=== PATIENT | male | born 1945 | race Caucasian/White ===

== ENCOUNTER → 2017-04-10 | Outpatient (CLI) | payer OTHER ==
--- NOTE | ~2017-04-10 | 2DMMODE ---
[facility] [place] [place] [address] 2 D/M-MODE ECHOCARDIOGRAM Name: GEOVANY DELONG Room #: REG [facility]#: [id number] Admission: 04/10/17 Attend Phys: Gordon Reynolds MD Discharge: Date of : 45 Date of Service: 04/10/17 0935 Report #: [id number] THIS REPORT FOR: //name// APPROVED REPORT Study performed: 04/10/2017 08:51:43 EXAM: Comprehensive 2D, Doppler, and color-flow Echocardiogram Patient Location: Out-Patient Status: routine BSA: 2.15 HR: 57 bpm BP: 152/88 mmHg Rhythm: NSR Other Information Study Quality: Good Indications Atrial Fibrillation Hx: HTN, HLP 2D Dimensions RVDd: 37.61 mm LVEF(%): 58.10 (>50%) IVSd: 10.76 (7-11mm) LVOT Diam: 20.87 (18-24mm) LVDd: 45.02 mm PWd: 10.40 (7-11mm) Ascending Ao: 32.92 (22-36mm) LVDs: 31.29 (25-40mm) Aortic Root: 31.83 mm Irving's LVEF: 58.10 % Volumes Left Atrial Volume (Systole) Single Plane 4CH: 62.70 mL Single Plane 2CH: 60.21 mL LA ESV Index: 31.00 mL/m2 Aortic Valve AoV Peak Clive.: 1.19 m/s AO Peak Gr.: 5.65 mmHg LVOT Max P.37 mmHg LVOT Max V: 0.92 m/s CUONG Vmax: 2.64 cm2 Mitral Valve E/A Ratio: 2.3 [facility] [place] [employer] [place] [address] 2 D/M-MODE ECHOCARDIOGRAM Name: GEOVANY DELONG Room #: REG [facility]#: [id number] Admission: 04/10/17 Attend Phys: Gordon Reynolds MD Discharge: Date of : 45 Date of Service: 04/10/17 0935 Report #: [id number] MV Decel. Time: 210.51 ms MV E Max Clive.: 0.86 m/s MV A Clive.: 0.38 m/s MV PHT: 61.05 ms IVRT: 55.36 ms Pulmonary Valve PV Peak Clive.: 0.76 m/s PV Peak Gr.: 2.30 mmHg Pulmonary Vein P Vein S: 0.46 m/s P Vein A: 0.29 m/s P Vein D: 0.75 m/s P Vein A Dur.: 96.9 msec P Vein S/D Ratio: 0.61 Tricuspid Valve TR Peak Clive.: 2.09 m/s RAP Estimate: 5.00 mmHg TR Peak Gr.: 17.41 mmHg PA Pressure: 22.00 mmHg Left Ventricle The left ventricle is normal size. There is normal LV segmental wall motion. There is normal left ventricular wall thickness. Left ventricular systolic function is normal. LVEF is 55-60%. Right Ventricle The right ventricle is normal size. The right ventricular systolic function is normal. Atria The left atrium size is normal. The right atrium size is normal. Aortic Valve Aortic valve leaflets are mildly thickened. No aortic regurgitation is present. There is no aortic valvular stenosis. Mitral Valve Mitral valve leaflets are mildly thickened. Trace mitral regurgitation. No evidence of mitral valve stenosis. Tricuspid Valve The tricuspid valve is normal in structure. There is mild tricuspid regurgitation. The right atrial pressure is estimated at 5 mmHg. Estimated PAP is 22mmHg. Pulmonic Valve [address] [address] 2 D/M-MODE ECHOCARDIOGRAM Name: SINDIGEOVANY Room #: REG [facility].#: [id number] Admission: 04/10/17 Attend Phys: Gordon Reynolds MD Discharge: Date of : 45 Date of Service: 04/10/17 0935 Report #: [id number] The pulmonary valve is normal in structure. Trace pulmonic regurgitation. Great Vessels The aortic root is normal in size. The ascending aorta is normal in size. IVC is normal in size and collapses >50% with inspiration. Pericardium There is no pericardial effusion. <Conclusion> The left ventricle is normal size. Left ventricular systolic function is normal. The right ventricle is normal size. The left atrium size is normal. Aortic valve leaflets are mildly thickened. Trace mitral regurgitation. There is mild tricuspid regurgitation. The right atrial pressure is estimated at 5 mmHg. Estimated PAP is 22mmHg. <ELECTRONICALLY SIGNED> By: Gordon Reynolds MD 04/10/1735 4 4 Gordon Reynolds MD /INF
== END ==
LOC: CV 08:31
DX: I48.91 Unspecified atrial fibrillation (principal); I07.1 Rheumatic tricuspid insufficiency; I10 Essential (primary) hypertension

== ENCOUNTER → 2017-04-12 | Outpatient (CLI) | payer OTHER | LOC: NUC 07:38 | DX: I48.91 Unspecified atrial fibrillation (principal) ==

== ENCOUNTER → 2019-01-20 | Outpatient (CLI) | payer OTHER | LOC: CAT 12:02 | DX: Z13.6 Encounter for screening for cardiovascular disorders (principal); E78.00 Pure hypercholesterolemia, unspecified; Z82.49 Family history of ischemic heart disease and other diseases of the circulatory system ==

== ENCOUNTER → 2019-01-20 | Outpatient (CLI) | payer OTHER ==
--- NOTE | 2019-01-20 11:40 | 2DMMODE ---
[facility] [place] [address] 2 D/M-MODE ECHOCARDIOGRAM Name: GEOVANY DELONG Room #: REG [facility]#: [id number] ������������� Admission: 01/20/19 ������������� Attend Phys: Gordon Reynolds MD Discharge: ��� ������������� ��� Date of : 45 Date of Service: 01/20/19 1140 �� Report #: [id number] �������� ��������������������������������������������[id number] THIS REPORT FOR: //name// APPROVED REPORT Study performed: 01/20/2019 11:05:01 EXAM: Comprehensive 2D, Doppler, and color-flow Echocardiogram Patient Location: Out-Patient Status: routine BSA: 2.15 HR: 59 bpm BP: 138/78 mmHg Rhythm: NSR Other Information Study Quality: Good Indications History of Afib. 2D Dimensions RVDd: 35.06 mm IVSd: 10.02 (7-11mm) LVOT Diam: 21.42 (18-24mm) LVDd: 49.89 mm PWd: 10.25 (7-11mm) Ascending Ao: 35.51 (22-36mm) LVDs: 33.00 (25-40mm) Aortic Root: 33.36 mm Volumes Left Atrial Volume (Systole) Single Plane 4CH: 59.04 mL Single Plane 2CH: 62.28 mL LA ESV Index: 30.00 mL/m2 Aortic Valve AoV Peak Clive.: 1.33 m/s AO Peak Gr.: 7.04 mmHg LVOT Max P.84 mmHg LVOT Max V: 0.84 m/s CUONG Vmax: 2.29 cm2 Mitral Valve E/A Ratio: 0.9 MV Decel. Time: 309.16 ms MV E Max Clive.: 0.56 m/s [facility] [address] [address] 2 D/M-MODE ECHOCARDIOGRAM Name: GEOVANY DELONG Room #: REG [facility]#: [id number] ������������� Admission: 01/20/19 ������������� Attend Phys: Gordon Reynolds MD Discharge: ��� ������������� ��� Date of : 45 Date of Service: 01/20/19 1140 �� Report #: [id number] �������� ��������������������������������������������[id number] MV A Clive.: 0.64 m/s MV PHT: 89.66 ms IVRT: 101.50 ms Pulmonary Valve PV Peak Clive.: 1.03 m/s PV Peak Gr.: 4.20 mmHg Pulmonary Vein P Vein S: 0.52 m/s P Vein D: 0.60 m/s P Vein S/D Ratio: 0.87 Tricuspid Valve TR Peak Clive.: 2.01 m/s RAP Estimate: 5.00 mmHg TR Peak Gr.: 16.24 mmHg PA Pressure: 21.00 mmHg Left Ventricle The left ventricle is normal size. There is normal LV segmental wall motion. There is normal left ventricular wall thickness. The left ventricular systolic function is normal. LVEF is 55-60%. Mild diastolic dysfunction is present (impaired relaxation pattern). Right Ventricle The right ventricle is normal size. The right ventricular systolic function is normal. Atria The left atrium size is normal. The right atrium size is normal. Aortic Valve The aortic valve is normal in structure. No aortic regurgitation is present. There is no aortic valvular stenosis. Mitral Valve The mitral valve is normal in structure. Mild mitral regurgitation. Tricuspid Valve The tricuspid valve is normal in structure. Trace tricuspid regurgitation. Estimated PAP is 20-25mmHg. Pulmonic Valve The pulmonary valve is normal in structure. Trace pulmonic [facility] [address] [place] [address] 2 D/M-MODE ECHOCARDIOGRAM Name: DELONGGEOVANY Room #: REG [facility]#: [id number] ������������� Admission: 01/20/19 ������������� Attend Phys: Gordon Reynolds MD Discharge: ��� ������������� ��� Date of : 45 Date of Service: 01/20/19 1140 �� Report #: [id number] �������� ��������������������������������������������[id number] regurgitation. Great Vessels The aortic root is normal in size. Ascending aorta is not well visualized. IVC is normal in size and collapses >50% with inspiration. Pericardium There is no pericardial effusion. <Conclusion> The left ventricle is normal size. There is normal left ventricular wall thickness. The left ventricular systolic function is normal. Mild diastolic dysfunction is present (impaired relaxation pattern). The right ventricle is normal size. The left atrium size is normal. The aortic valve is normal in structure. Mild mitral regurgitation. Trace tricuspid regurgitation. Estimated PAP is 20-25mmHg. ��������������������������������������������� <ELECTRONICALLY SIGNED> ���������������������������������������� By: Gordon Reynolds MD ��������������������������������������������� 01/20/19 1140 1140 1140 Gordon Reynolds MD /INF
== END ==
LOC: CV 10:47
DX: I34.0 Nonrheumatic mitral (valve) insufficiency (principal); I48.91 Unspecified atrial fibrillation; I10 Essential (primary) hypertension

== ENCOUNTER → 2020-01-23 | Outpatient (CLI) | payer OTHER | LOC: SJCVCIMAG 09:21 | PROVIDERS: ATTEND Internal Medicine Cardiovascular Disease | DX: I25.10 Atherosclerotic heart disease of native coronary artery without angina pectoris (principal); I10 Essential (primary) hypertension; E78.5 Hyperlipidemia, unspecified; I48.0 Paroxysmal atrial fibrillation; E78.00 Pure hypercholesterolemia, unspecified; M10.9 Gout, unspecified; Z79.82 Long term (current) use of aspirin; Z79.899 Other long term (current) drug therapy ==

== ENCOUNTER → 2020-08-04 | Outpatient (CLI) | payer OTHER | LOC: SJCVC 13:44 | PROVIDERS: ATTEND Internal Medicine Cardiovascular Disease | DX: R94.31 Abnormal electrocardiogram [ECG] [EKG] (principal); R00.1 Bradycardia, unspecified; I48.0 Paroxysmal atrial fibrillation; I10 Essential (primary) hypertension; E78.00 Pure hypercholesterolemia, unspecified; R60.9 Edema, unspecified; I25.10 Atherosclerotic heart disease of native coronary artery without angina pectoris; R93.1 Abnormal findings on diagnostic imaging of heart and coronary circulation; Z79.82 Long term (current) use of aspirin; Z79.899 Other long term (current) drug therapy ==

== ENCOUNTER → 2021-02-02 | Outpatient (CLI) | payer OTHER | LOC: SJCVCIMAG 09:26 | PROVIDERS: ATTEND Internal Medicine Cardiovascular Disease | DX: R94.31 Abnormal electrocardiogram [ECG] [EKG] (principal); I44.0 Atrioventricular block, first degree; R00.1 Bradycardia, unspecified; R93.1 Abnormal findings on diagnostic imaging of heart and coronary circulation; I25.10 Atherosclerotic heart disease of native coronary artery without angina pectoris; I48.0 Paroxysmal atrial fibrillation; I10 Essential (primary) hypertension; E78.00 Pure hypercholesterolemia, unspecified; M10.9 Gout, unspecified; E78.5 Hyperlipidemia, unspecified; R60.0 Localized edema; Z79.82 Long term (current) use of aspirin; Z79.899 Other long term (current) drug therapy; Z87.442 Personal history of urinary calculi; Z72.89 Other problems related to lifestyle ==

== ENCOUNTER → 2021-08-08 | Outpatient (CLI) | payer OTHER | LOC: SJCVC 10:22 | PROVIDERS: ATTEND Internal Medicine Cardiovascular Disease | DX: R00.1 Bradycardia, unspecified (principal); I48.0 Paroxysmal atrial fibrillation; I10 Essential (primary) hypertension; E78.00 Pure hypercholesterolemia, unspecified; R60.9 Edema, unspecified; I25.10 Atherosclerotic heart disease of native coronary artery without angina pectoris; E78.5 Hyperlipidemia, unspecified; M10.9 Gout, unspecified; R93.1 Abnormal findings on diagnostic imaging of heart and coronary circulation; Z79.899 Other long term (current) drug therapy; Z72.89 Other problems related to lifestyle ==